=== PATIENT | male | born 1965 | race Caucasian/White ===

== ENCOUNTER 2023-12-07 07:48 | Day surgery (SDC) | payer BC ==
[~2023-12-07 07:48] MED LIST: Sodium Chloride 0.9% 10 ML Syringe FLUSH PRN
[2023-12-07] MEDS ORDERED: Ketamine 500 mg/10 ML MDV IV ONE (07:49)
[2023-12-07] MEDS ORDERED: Midazolam 1 MG/ML 2 ML SDV IV ONE (07:49)
[2023-12-07] MEDS ORDERED: Propofol 200 MG/20 ML SDV IV ONE (07:49)
[2023-12-07] MEDS ORDERED: Glycopyrrolate 0.2 MG/ML 5 ML MDV IV ONE (07:49)
[2023-12-07] MEDS: Lactated Ringers 1,000 ML IV SCH (08:23)
== END 2023-12-07 11:15 | disposition home or self-care (01) ==
LOC: FB.SDS 07:48
PROVIDERS: ATTEND Surgery
DX: Z12.11 Encounter for screening for malignant neoplasm of colon (principal); K21.00 Gastro-esophageal reflux disease with esophagitis, without bleeding; K22.89 Other specified disease of esophagus; K44.9 Diaphragmatic hernia without obstruction or gangrene; K57.30 Diverticulosis of large intestine without perforation or abscess without bleeding; R13.10 Dysphagia, unspecified; I10 Essential (primary) hypertension; M54.42 Lumbago with sciatica, left side; M54.41 Lumbago with sciatica, right side; E66.9 Obesity, unspecified; Z79.899 Other long term (current) drug therapy; Z88.0 Allergy status to penicillin; Z68.33 Body mass index [BMI] 33.0-33.9, adult
CPT/HCPCS: 00813; 43239; 45378; 88305; J2250; J2704; J3490; J7120